=== PATIENT | female | born 1975 | race Caucasian/White ===

== ENCOUNTER 2020-04-22 07:52 | Emergency (ER) | payer MEDICAID ==
[~2020-04-22] VITALS: Ht 165.1 cm; Wt 61.4 kg
[2020-04-22] MEDS ORDERED: ACETAMINOPHEN 325MG TABLET PO ONE (08:30)
[2020-04-22 09:55] VITALS: BP 116/67
== END 2020-04-22 09:57 | disposition home or self-care (01) ==
LOC: ER 07:52
DX: U07.1 COVID-19 (principal); R05 Cough; R06.02 Shortness of breath
CPT/HCPCS: 71045; 87635; 99284; C9803; 99283